=== PATIENT | female | born 1975 | race Caucasian/White ===

== ENCOUNTER 2017-11-27 13:02 | Emergency (ER) | payer MEDICAID ==
[2017-11-27] MEDS ORDERED: NORMAL SALINE 1000 ML 1,000 ML IV PRN (13:16)
--- NOTE | 2017-11-27 13:17 | ER Document Report ---
ED General - General Stated Complaint: WITHDRAWALS Time Seen by Provider: 11/27/17 13:13 Mode of Arrival: Medic Information source: Patient, Law Enforcement - [facility] Notes: 42-year-old female presents to the ED today for evaluation of benzodiazepine withdrawals after she has been "off Xanax" since November 22. Patient denied any use of Xanax until her records came in yesterday according to police records. Patient was incarcerated on 22 November for heroin possession and driving while impaired amongst other charges. Currently patient has been psychotic and confused per police she is unpredictable and is a "flight risk". Denies fevers, chills, chest pain,palpitations, shortness of breath, dyspnea, nausea , vomiting, diarrhea, abdominal pain, hematuria,blurred vision, double vision, loss of vision, speech changes, LH, dizziness, syncope, headaches, wheezing, ST , URI, neck pain, weakness, bowel or bladder dysfunction, saddle anesthesia, numbness or tingling in bilateral upper or lower extremities equally, muscle paralysis, weakness in bilateral upper or lower extremities equally or rash. - Related Data Allergies/Adverse Reactions: No Known Allergies Allergy (Verified 11/27/17 15:44) Past Medical History - General Information source: Patient, Law Enforcement - Social History Smoking Status: Current Every Day Smoker Family History: Reviewed & Not Pertinent Review of Systems - Review of Systems Constitutional: See HPI EENT: No symptoms reported Cardiovascular: No symptoms reported Respiratory: No symptoms reported Gastrointestinal: No symptoms reported Genitourinary: No symptoms reported Female Genitourinary: No symptoms reported Musculoskeletal: No symptoms reported Skin: No symptoms reported Hematologic/Lymphatic: No symptoms reported Neurological/Psychological: See HPI Physical Exam - Vital signs Vitals: Temp Pulse Resp BP Pulse Ox 98.1 F 61 16 151/95 H 100 11/27/17 15:46 11/27/17 15:46 11/27/17 15:46 11/27/17 15:46 11/27/17 15:46 - Notes Notes: PHYSICAL EXAMINATION: GENERAL: Clinically ill-appearing well-nourished and in no acute distress. HEAD: Atraumatic, normocephalic. EYES: Pupils equal round and reactive to light, extraocular movements intact, conjunctiva are normal. ENT: Nares patent, oropharynx clear without exudates. Moist mucous membranes. NECK: Normal range of motion, supple without lymphadenopathy LUNGS: Breath sounds clear to auscultation bilaterally and equal. No wheezes rales or rhonchi. HEART: Regular rate and rhythm without murmurs ABDOMEN: Soft, nontender, nondistended abdomen. No guarding, no rebound. No masses appreciated. Female : deferred Musculoskeletal: Normal range of motion, no pitting or edema. No cyanosis. NEUROLOGICAL: Cranial nerves grossly intact. Normal speech, normal gait. Normal sensory, motor exams SKIN: Warm, Dry, normal turgor, no rashes or lesions noted. - Psychological Associated symptoms: Anxious, Flight of ideas, Restlessness - Skin Skin Temperature: Warm Skin Moisture: Dry Course - Re-evaluation Re-evalutation: 11/27/17 14:24 42-year-old female who is being evaluated for possible benzodiazepine withdrawal presents to the ED while being actively incarcerated by police. Dr. Jeffry Vergara, psychologist at bedside to examine patient, recommended patient be given Haldol 10 mg IM now, and can be discharged with Haldol 5 mg twice daily as well as Cogentin 1 mg daily for diagnosis of bipolar disorder unspecified psychosis. patient is afebrile, is not in any distress and vitals are stable.CBC negative for leukocytosis or anemia. CMP shows a hypokalemia of 2.7, no renal or hepatic dysfunction. Will start patient on K rider with oral potassium of 40 meq. EKG negative for STEMI. Chest x-ray shows hyperinflated lungs, no other acute disease processes. First set of troponin was 0. 039. Patient patient remains afebrile, vitals stable and in no distress. Patient is pleasant and agreeable with this provider. BABAK at bedside. repeat potassium 3.3. Repeat troponin 0.048, patient remains afebrile, no chest pain, no shortness of breath, she is eating and watching TV, in no distress. Suspicion for acute coronary syndrome. will repeat a third troponin to see if there is a trend continuing to go up remains afebrile, patient's heart rate 88 blood pressure is 144/90, pulse ox 100. Disposition given to LINDEN Gonzalez at 1915 for further management of care. - Vital Signs Vital signs: Temp Pulse Resp BP Pulse Ox 98.1 F 61 18 144/109 H 98 11/27/17 15:46 11/27/17 15:46 11/27/17 17:01 11/27/17 17:01 11/27/17 17:01 - Laboratory Result Diagrams: 11/27/17 13:40 11/27/17 18:06 Laboratory results interpreted by me: 11/27/17 11/27/17 11/27/17 13:40 13:40 13:40 Hgb 18.0 H Hct 52.3 H MCV 99 H MCH 34.1 H Potassium 2.8 L* Carbon Dioxide 21 L Glucose 138 H Calcium 10.3 H Direct Bilirubin 0.5 H AST 41 H Creatine Kinase Total Protein 8.3 H Urine Protein Urine Ketones Urine Blood Urine Urobilinogen Acetaminophen < 10 L 11/27/17 11/27/17 11/27/17 13:40 16:10 18:06 Hgb Hct MCV MCH Potassium 3.3 L Carbon Dioxide Glucose Calcium Direct Bilirubin AST Creatine Kinase 246 H Total Protein Urine Protein 100 H Urine Ketones 20 H Urine Blood SMALL H Urine Urobilinogen 4.0 H Acetaminophen Discharge - Discharge Clinical Impression: Hypokalemia, Withdrawal from benzodiazepine Condition: Stable Disposition: HOME, SELF-CARE Instructions: Hypokalemia ([facility]) Prescriptions: Haloperidol [Haldol 5 mg Tablet] 5 mg PO BID #10 tablet Referrals: WADE SILVA MD [ACTIVE STAFF] - Follow up as needed
[2017-11-27 13:55] LABS: ABSOLUTE LYMPHOCYTES (AUTO) 2.1 10^3/uL (0.5-4.7); ABSOLUTE MONOCYTES (AUTO) 0.7 10^3/uL (0.1-1.4); BASOPHILS % (AUTO) 0.2 % (0-2); EOSINOPHILS % (AUTO) 0.2 % (0-6); HEMATOCRIT 52.3 % (36.0-47.0); LYMPHOCYTES % (AUTO) 21.4 % (13-45); MEAN CORPUSCULAR HEMOGLOBIN 34.1 pg (27.0-33.4); MEAN CORPUSCULAR HGB CONC 34.3 g/dL (32.0-36.0); MEAN CORPUSCULAR VOLUME 99 fl (80-97); MONOCYTES % (AUTO) 7.4 % (3-13); PLATELET COUNT 207 10^3/uL (150-450); RED BLOOD COUNT 5.27 10^6/uL (3.72-5.28); RED CELL DISTRIBUTION WIDTH 13.5 % (11.5-14.0); SEGMENTED NEUTROPHILS % (AUTO) 70.8 % (42-78); TOTAL CELLS COUNTED % (AUTO) 100 %; WHITE BLOOD COUNT 9.9 10^3/uL (4.0-10.5)
[2017-11-27] MEDS ORDERED: HALOPERIDOL LACTATE INJ 5 MG/1 ML VIAL IM ONE (13:57)
[2017-11-27 14:13] LABS: ALANINE AMINOTRANSFERASE 38 U/L (9-52); ALBUMIN 4.9 g/dL (3.5-5.0); ALKALINE PHOSPHATASE 98 U/L (38-126); ANION GAP 17 (5-19); ASPARTATE AMINO TRANSFERASE 41 U/L (14-36); BILIRUBIN,DIRECT 0.5 mg/dL (0.0-0.4); BLOOD UREA NITROGEN 16 mg/dL (7-20); CALCIUM 10.3 mg/dL (8.4-10.2); CARBON DIOXIDE 21 mmol/L (22-30); CHLORIDE 106 mmol/L (98-107); GLUCOSE 138 mg/dL (75-110); SODIUM 144.2 mmol/L (137-145); TOTAL PROTEIN 8.3 g/dL (6.3-8.2)
[2017-11-27 14:15] LABS: ALCOHOL < 10 mg/dL (NONE DETECTED)
[2017-11-27 14:17] LABS: POTASSIUM 2.8 mmol/L (3.6-5.0)
[2017-11-27] MEDS ORDERED: POTASSI CL 20 MEQ/50 ML RIDER 20 MEQ/50 ML RTUPB IV SCH (14:30)
--- NOTE | 2017-11-27 14:54 | RADIOLOGY REPORT (SQ) ---
EXAM DESCRIPTION: CHEST SINGLE VIEW COMPLETED DATE/TIME: 11/27/2017 2:46 pm REASON FOR STUDY: Confusion COMPARISON: None. EXAM PARAMETERS: NUMBER OF VIEWS: One view. TECHNIQUE: Single frontal radiographic view of the chest acquired. RADIATION DOSE: NA LIMITATIONS: None. FINDINGS: LUNGS AND PLEURA: The lungs are hyperexpanded. No consolidation or pleural effusion. No evidence of pneumothorax. MEDIASTINUM AND HILAR STRUCTURES: No masses. Contour normal. HEART AND VASCULAR STRUCTURES: Heart normal in size. Normal vasculature. BONES: No acute findings. HARDWARE: None in the chest. OTHER: No other significant finding. IMPRESSION: Hyperexpanded lungs. Differential diagnosis includes chronic obstructive pulmonary dise ase. No acute findings. TECHNICAL DOCUMENTATION: JOB ID: [id number] [employer]- All Rights Reserved Reading location - IP/workstation name: [email or web address]
[2017-11-27] MEDS ORDERED: POTASSI CL 20 MEQ/50 ML RIDER 20 MEQ/50 ML RTUPB IV ONE (15:03)
[2017-11-27] MEDS ORDERED: POTASSIUM CHLORIDE 10 MEQ CAPSULE.ER PO ONE ×2 (15:03→18:34)
--- NOTE | 2017-11-27 15:29 | EKG REPORT ---
SEVERITY:- ABNORMAL ECG - SINUS RHYTHM SHORT DC INTERVAL, ACCELERATED AV CONDUCTION NONSPECIFIC T ABNORMALITIES, ANT-LAT LEADS : Confirmed by: Prince López MD 27-Nov-2017 15:27:19
[2017-11-27 15:31] LABS: CREATINE KINASE MB 3.62 ng/mL (<4.55)
[2017-11-27 15:33] LABS: TROPONIN I 0.039 ng/mL
[2017-11-27] MEDS ORDERED: ASPIRIN 81 MG TABLET, CHEWABLE PO ONE (15:38)
[2017-11-27 16:34] LABS: INTERNATIONAL RATION (INR) 0.97; PROTHROMBIN TIME 13.4 SEC (11.4-15.4)
[2017-11-27 16:36] LABS: APPEARANCE,URINE SLIGHTLY-CLOUDY; BILIRUBIN,URINE NEGATIVE (NEGATIVE); COLOR,URINE AMBER; GLUCOSE, URINE NEGATIVE (NEGATIVE); KETONES,URINE 20 mg/dL (NEGATIVE); LEUKOCYTE ESTERASE,URINE NEGATIVE (NEGATIVE); NITRITE,URINE NEGATIVE (NEGATIVE); PROTEIN,URINE 100 mg/dL (NEGATIVE); URINE SPECIFIC GRAVITY 1.029
[2017-11-27 16:51] LABS: URINE AMPHETAMINES SCREEN NEGATIVE; URINE BARBITURATES SCREEN NEGATIVE; URINE BENZODIAZEPINES SCREEN UNCONFIRMED POSITIVE; URINE COCAINE SCREEN NEGATIVE; URINE MARIJUANA (THC) SCREEN UNCONFIRMED POSITIVE; URINE METHADONE SCREEN NEGATIVE; URINE PHENCYCLIDINE SCREEN NEGATIVE
--- NOTE | 2017-11-27 17:54 | PSYCHOLOGICAL NOTE ---
Psych Note - Psych Note Psych Note: Met with Patient who was in the custody of [facility] for possession of heroin and other charges. She presented to ED for possible benzo withdrawal, however, review of the [place] Controlled Substance Registry reveals the Patient is not prescribed any benzodiazepines, rather she is prescribed Adipex and phentermine regularly. Patient's presentation was highly disorganized and difficult to follow, thus, she was considered a poor historian. Her presentation is not considered consistent with benzodiazepine withdrawal, rather possible rapid withdrawal from stimulants along with comorbid mental health issues such as bipolar disorder, with psychosis. Patient was alert and oriented to name only. Mood was calm and cooperative, and affect was bright. She denied suicidal / homicidal ideation, intent or plan. She denied auditory / visual hallucinations, but delusions were present. Thought processes were disorganized, illogical, and non-linear. Conversational speech was significant for pressured, tangential speech, and normal tone. Intellectual abilities were estimated within the average range. Attention and concentration was impaired, as was insight, judgment, and impulse control. Medication recommendation from psychiatric provider: 1. Haldol 10 mg IM now 2. Haldol 10 mg daily 3. Cogentin 1 mg daily Diagnoses: 1. Acute Stimulant Withdrawal 2. Unspecified Bipolar Disorder, with Psychosis Impression / Plan: Patient is in the custody of [facility] for multiple felony charges and was brought in for psychosis. Her presentation is not consistent with benzo withdrawal but possibly with acute stimulant withdrawal or an unspecified bipolar disorder with psychosis. She is prescribed Adipex and Phentermine regularly and receiving multiple medications but no benzodiazepines. At this time, she is cleared from acute psychiatric services and medications were provided for recommendation for [facility] at the [facility] while in custody. ED Physician in agreement [facility] recommendation and disposition.
[2017-11-27] MEDS ORDERED: NORMAL SALINE 1000 ML 1,000 ML IV ONE (18:16)
[2017-11-27 23:29] VITALS: BP 126/72
== END 2017-11-27 23:29 | disposition home or self-care (01) ==
LOC: ER 13:02
DX: E87.6 Hypokalemia (principal); F13.230 Sedative, hypnotic or anxiolytic dependence with withdrawal, uncomplicated; F17.200 Nicotine dependence, unspecified, uncomplicated
CPT/HCPCS: 93005; 99285; 96372; 96361; 96365; 96366; 36415; 82553; 80307 ×3; 82550; 84132; 84703; 85025; 85610; 80053; 81001; 84484; 71045; 93010; J1630; J3480; J7030

== ENCOUNTER 2017-12-07 14:17 | Emergency (ER) | payer MEDICAID ==
[2017-12-07 14:39] VITALS: BP 117/88
[2017-12-07] MEDS ORDERED: NORMAL SALINE 1000 ML 1,000 ML IV ONE (14:53)
[2017-12-07 15:06] LABS: ABSOLUTE BASOPHILS # (AUTO) 0.1 10^3/uL (0.0-0.2); ABSOLUTE EOSINOPHILS # (AUTO) 0.1 10^3/uL (0.0-0.6); ABSOLUTE LYMPHOCYTES (AUTO) 1.7 10^3/uL (0.5-4.7); ABSOLUTE MONOCYTES (AUTO) 0.7 10^3/uL (0.1-1.4); ABSOLUTE NEUT (AUTO) 6.6 10^3/uL (1.7-8.2); BASOPHILS % (AUTO) 0.6 % (0-2); EOSINOPHILS % (AUTO) 1.5 % (0-6); HEMOGLOBIN 14.8 g/dL (12.0-15.5); LYMPHOCYTES % (AUTO) 18.4 % (13-45); MEAN CORPUSCULAR HGB CONC 34.3 g/dL (32.0-36.0); MEAN CORPUSCULAR VOLUME 99 fl (80-97); MONOCYTES % (AUTO) 7.6 % (3-13); PLATELET COUNT 223 10^3/uL (150-450); RED BLOOD COUNT 4.34 10^6/uL (3.72-5.28); RED CELL DISTRIBUTION WIDTH 13.5 % (11.5-14.0); SEGMENTED NEUTROPHILS % (AUTO) 71.9 % (42-78); TOTAL CELLS COUNTED % (AUTO) 100 %; WHITE BLOOD COUNT 9.2 10^3/uL (4.0-10.5)
[2017-12-07 15:20] LABS: ACETAMINOPHEN < 10 ug/mL (10-30); ALCOHOL 132 mg/dL (NONE DETECTED); ANION GAP 18 (5-19); BLOOD UREA NITROGEN 8 mg/dL (7-20); CALCIUM 9.1 mg/dL (8.4-10.2); CARBON DIOXIDE 21 mmol/L (22-30); CHLORIDE 107 mmol/L (98-107); GLUCOSE 112 mg/dL (75-110); POTASSIUM 3.8 mmol/L (3.6-5.0); SALICYLATE < 1.0 mg/dL (2.0-20.0); SODIUM 145.6 mmol/L (137-145)
--- NOTE | 2017-12-07 15:28 | ER Document Report ---
ED General - General Chief Complaint: Possible Overdose Stated Complaint: POSSIBLE OVERDOSE Time Seen by Provider: 12/07/17 14:52 TRAVEL OUTSIDE OF THE [place] IN LAST 30 DAYS: No - HPI Patient complains to provider of: Overdose Notes: Patient coming in respiratory distress due to an overdose. According EMS notes patient was found to be apneic and respiratory distress patient was given a total of 2.4 mg of Narcan upon her arrival here to the ER no longer in respiratory distress with normal vital signs. Patient does admit to using what she thought was heroin approximately 1-2 hours prior to EMS finding her. Patient states she has never overdosed before patient states intermittent use of heroin however denies any other illicit substances that also denies any alcohol. Patient resting comfortably stating she feels better and wishes to be discharged home at this time. Denies any trauma denies any fevers chills nausea vomiting diarrhea patient denies any homicidal suicidal ideation. Patient states she did not overdose in a suicide attempt - Related Data Allergies/Adverse Reactions: No Known Allergies Allergy (Verified 11/27/17 15:44) Past Medical History - Social History Smoking Status: Current Every Day Smoker Chew tobacco use (# tins/day): No Frequency of alcohol use: Occasional Drug Abuse: Cocaine, Heroin Family History: Reviewed & Not Pertinent Patient has suicidal ideation: No Patient has homicidal ideation: No Renal/ Medical History: Denies: Hx Peritoneal Dialysis Past Surgical History: Reports: Hx Tubal Ligation Review of Systems - Review of Systems Constitutional: Other - Accidental overdose EENT: No symptoms reported Cardiovascular: No symptoms reported Respiratory: No symptoms reported Gastrointestinal: No symptoms reported Genitourinary: No symptoms reported Female Genitourinary: No symptoms reported Musculoskeletal: No symptoms reported Skin: No symptoms reported Hematologic/Lymphatic: No symptoms reported Neurological/Psychological: No symptoms reported -: Yes All other systems reviewed and negative Physical Exam - Vital signs Vitals: Temp Pulse Resp BP Pulse Ox 98.1 F 99 19 117/88 H 96 12/07/17 14:29 12/07/17 14:29 12/07/17 14:29 12/07/17 14:29 12/07/17 14:29 Interpretation: Normal - General General appearance: Appears well, Alert - HEENT Head: Normocephalic, Atraumatic Eyes: Normal Pupils: PERRL - Respiratory Respiratory status: No respiratory distress Chest status: Nontender Breath sounds: Normal Chest palpation: Normal - Cardiovascular Rhythm: Regular Heart sounds: Normal auscultation Murmur: No - Abdominal Inspection: Normal Distension: No distension Bowel sounds: Normal Tenderness: Nontender Organomegaly: No organomegaly - Back Back: Normal, Nontender - Extremities General upper extremity: Normal inspection, Nontender, Normal color, Normal ROM , Normal temperature, Other - Signs of venous puncture in the left antecubital fossa with no signs of abscess from your cellulitis. Unclear if this was from the patient's injection site or if this is from EMS attempt to gain IV access. Left antecubital region is the area the patient states that she did inject herself prior to overdosing General lower extremity: Normal inspection, Nontender, Normal color, Normal ROM , Normal temperature, Normal weight bearing. No: Radha's sign - Neurological Neuro grossly intact: Yes Cognition: Normal Orientation: AAOx4 Attila Coma Scale Eye Opening: Spontaneous Attila Coma Scale Verbal: Oriented Attila Coma Scale Motor: Obeys Commands Attila Coma Scale Total: 15 Speech: Normal Motor strength normal: LUE, RUE, LLE, RLE Sensory: Normal - Psychological Associated symptoms: Normal affect, Normal mood - Skin Skin Temperature: Warm Skin Moisture: Dry Skin Color: Normal Course - Re-evaluation Re-evalutation: 12/07/17 23:06 Patient was monitored for signs of respiratory failure family at bedside states that they will watch the patient for the next 24 hours patient was also visited by her community paramedics. We were able to establish an appointment for the patient to follow-up with [facility] for substance abuse patient states that she will follow-up tomorrow morning at 8. Family members at bedside states that they will make sure the patient goes to her appointment. Patient was given discharge instructions - Vital Signs Vital signs: Temp Pulse Resp BP Pulse Ox 98.1 F 99 19 117/88 H 98 12/07/17 14:29 12/07/17 14:29 12/07/17 14:29 12/07/17 14:29 12/07/17 15:08 - Laboratory Result Diagrams: 12/07/17 14:54 12/07/17 14:54 Laboratory results interpreted by me: 12/07/17 12/07/17 14:54 14:54 MCV 99 H MCH 34.0 H Sodium 145.6 H Carbon Dioxide 21 L Glucose 112 H Salicylates < 1.0 L Acetaminophen < 10 L Critical Care Note - Critical Care Note Total time excluding time spent on procedures (mins): 35 Comments: Multiple evaluation for patient with overdose requiring Narcan assessing for respiratory distress failure Discharge - Discharge Clinical Impression: Accidental overdose Qualifiers: Encounter type: initial encounter Qualified Code(s): T50.901A - Poisoning by unspecified drugs, medicaments and biological substances, accidental ( unintentional), initial encounter Condition: Good Disposition: HOME, SELF-CARE Instructions: Instructions for Home Care Following a Drug Overdose ([facility]) Additional Instructions: Your seen today at their next normal however does possibly of heroin. When EMS arrived you were not breathing and without the administration of Narcan you would have . Please follow-up with your appointment appointment we set up for you tomorrow. Please abstain from any other mind altering drugs. Return to ER symptoms worsen.
--- NOTE | 2017-12-07 21:52 | EKG REPORT ---
SEVERITY:- NORMAL ECG - SINUS RHYTHM : Confirmed by: Maddy Mo 07-Dec-2017 21:51:30
== END 2017-12-07 16:48 | disposition home or self-care (01) ==
LOC: ER 14:17
DX: T40.1X1A Poisoning by heroin, accidental (unintentional), initial encounter (principal); X58.XXXA Exposure to other specified factors, initial encounter; F17.200 Nicotine dependence, unspecified, uncomplicated; Z98.51 Tubal ligation status
CPT/HCPCS: 93005; 99285; 96360; 36415; 80307 ×3; 84703; 85025; 80048; 93010; J7030